=== PATIENT | male | born 1960 | race Caucasian/White ===

== ENCOUNTER 2017-07-12 05:13 | Emergency (ER) | payer SELFPAY ==
[~2017-07-12] VITALS: Ht 190.5 cm; Wt 95.3 kg
[~2017-07-12 05:13] MED LIST: ATIVAN1 MG ORAL
[2017-07-12 05:24] VITALS: BP 174/113
[2017-07-12] MEDS ORDERED: Morphine Sulfate 4mg/ml Inj IVP ONE (05:30)
[2017-07-12] MEDS ORDERED: LORazepam Inj 2mg/ml 1ml IV ONE (05:30)
[2017-07-12 05:41] LABS: BASOPHILS % (AUTO) 1.3 % (0.0-2.0); HEMATOCRIT 43.9 % (42.0-52.0); HEMOGLOBIN 15.9 G/DL (14.2-18.0); LYMPHOCYTES % (AUTO) 24.7 % (20.0-45.0); MEAN CORPUSCULAR VOLUME 98 FL (80-99); MONOCYTES % (AUTO) 8.8 % (1.0-10.0); NEUTROPHILS % (AUTO) 63.2 % (45.0-75.0); PLATELET COUNT 219 K/UL (150-450); RED BLOOD COUNT 4.49 M/UL (4.70-6.10); RED CELL DISTRIBUTION WIDTH 10.8 % (11.6-14.8)
--- NOTE | 2017-07-12 05:43 | Emergency Room Report ---
History of Present Illness General Chief Complaint: Vomiting Source: Patient (WILLIE NOBLE D.O.) Present Illness HPI Patient presents with complaints of diffuse abdominal pain vomiting and diarrhea Patient reports that he feels dehydrated denies any chest pain or shortness of breath He has subjective fevers well Denies any dysuria frequency Patient denies any blood in the vomit or diarrhea He has had previous hernia surgery however no other intra-abdominal surgery Denies any flank pain (WILLIE NOBLE D.O.) Allergies: Coded Allergies: No Known Allergies (Unverified , 07/12/17) Patient History Past Medical History: see triage record Pertinent Family History: none Reviewed Nursing Documentation: PMH: Agreed, PSxH: Agreed (WILLIE NOBLE D.O.) Nursing Documentation-PMH Hx Gastrointestinal Problems: Yes - ULCER History Of Psychiatric Problem: Yes - ANXIETY (WILLIE NOBLE D.O.) Review of Systems All Other Systems: negative except mentioned in HPI (WILLIE NOBLE D.O.) Physical Exam Vital Signs Date Time Temp Pulse Resp B/P (MAP) Pulse Ox O2 Delivery O2 Flow Rate FiO2 07/12/17 05:09 99.1 103 16 174/102 98 Room Air Sp02 EP Interpretation: reviewed, normal General Appearance: well appearing, no apparent distress Head: normocephalic, atraumatic Eyes: bilateral eye PERRL, bilateral eye EOMI ENT: hearing grossly normal, normal pharynx, TMs + canals normal, uvula midline Neck: full range of motion, supple, no meningismus, no bony tend Respiratory: lungs clear, normal breath sounds, no rhonchi, no respiratory distress, no retraction, no accessory muscle use Cardiovascular #1: normal peripheral pulses, regular rate, rhythm, no edema, no gallop, no JVD, no murmur Gastrointestinal: normal bowel sounds, non tender, soft, no mass, no organomegaly, non-distended, no guarding, no hernia, no pulsatile mass, no rebound Genitourinary: no CVA tenderness Musculoskeletal: normal inspection Neurologic: oriented x3, responsive, manager meeting III-XII nml as tested, motor strength/ tone normal, sensory intact Psychiatric: mood/affect normal Skin: normal color, no rash, warm/dry, palpation normal Lymphatic: normal inspection, no adenopathy (WILLIE NOBLE D.O.) Medical Decision Making Diagnostic Impression: Primary Impression: Gastroenteritis ER Course With the history exam and presentation, multiple differentials considered, including but not limited to appendicitis, gastritis, cholecystitis, diverticulitis Patient had blood work initiated IV hydration and pain medication And will require reevaluation (WILLIE NOBLE D.O.) ER Course Patient was endorsed to me by Dr. Noble. I laboratory testing was unremarkable except for mild elevation of his creatinine. The patient was advised to have labs rechecked with his primary care physician. The patient was noted to have improvement in his stomach discomfort. He denied any episodes of hematemesis or bloody stools at home. The patient has continued benign exam. The patient given prescription for Zofran as well as for Ativan for likely mild benzodiazepine withdrawal. The patient is advised to follow up with primary care doctor in 1-2 days. Patient is advised to return if any worsening condition or if any changes in status that are concerning including worsening abdominal pain, persistent vomiting, bloody stools or any other concerns. This report is dictated with [employer] card maker software which may occasionally lead to discrepancies related to use of this software. Labs Test 07/12/17 05:29 White Blood Count 5.0 K/UL (4.8-10.8) Red Blood Count 4.49 M/UL (4.70-6.10) Hemoglobin 15.9 G/DL (14.2-18.0) Hematocrit 43.9 % (42.0-52.0) Mean Corpuscular Volume 98 FL (80-99) Mean Corpuscular Hemoglobin 35.4 PG (27.0-31.0) Mean Corpuscular Hemoglobin Concent 36.3 G/DL (32.0-36.0) Red Cell Distribution Width 10.8 % (11.6-14.8) Platelet Count 219 K/UL (150-450) Mean Platelet Volume 6.4 FL (6.5-10.1) Neutrophils (%) (Auto) 63.2 % (45.0-75.0) Lymphocytes (%) (Auto) 24.7 % (20.0-45.0) Monocytes (%) (Auto) 8.8 % (1.0-10.0) Eosinophils (%) (Auto) 2.0 % (0.0-3.0) Basophils (%) (Auto) 1.3 % (0.0-2.0) Sodium Level 132 MMOL/L (136-145) Potassium Level 4.4 MMOL/L (3.5-5.1) Chloride Level 97 MMOL/L (98-107) Carbon Dioxide Level 24 MMOL/L (21-32) Anion Gap 12 mmol/L (5-15) Blood Urea Nitrogen 12 mg/dL (7-18) Creatinine 1.4 MG/DL (0.55-1.30) Estimat Glomerular Filtration Rate 52.4 mL/min (>60) Glucose Level 128 MG/DL (74-106) Calcium Level 9.1 MG/DL (8.5-10.1) Total Bilirubin 0.6 MG/DL (0.2-1.0) Aspartate Amino Transf (AST/SGOT) 49 U/L (15-37) Alanine Aminotransferase (ALT/SGPT) 32 U/L (12-78) Alkaline Phosphatase 53 U/L (46-116) Total Protein 7.4 G/DL (6.4-8.2) Albumin 4.2 G/DL (3.4-5.0) Globulin 3.2 g/dL Albumin/Globulin Ratio 1.3 (1.0-2.7) Lipase 292 U/L (73-393) (Leonardo Lao) Last Vital Signs Date Time Temp Pulse Resp B/P (MAP) Pulse Ox O2 Delivery O2 Flow Rate FiO2 07/12/17 05:24 99.1 87 17 174/113 99 Room Air (WILLIE NOBLE D.O.) Status: improved (Leonardo Lao) Disposition: HOME, SELF-CARE Condition: Stable Scripts Lorazepam* (ATIVAN*) 1 Mg Tablet 1 MG ORAL BEDTIME, #10 TAB Prov: Leonardo Lao 07/12/17 Ondansetron Odt* (ZOFRAN ODT*) 4 Mg Tab.rapdis 4 MG ORAL Q6H Y for Nausea & Vomiting, #15 TAB 0 Refills Prov: Leonardo Lao 07/12/17 WILLIE NOBLE D.O. Jul 12, 2017 05:43 Leonardo Lao Jul 12, 2017 08:27
[2017-07-12 06:18] LABS: ANION GAP 12 mmol/L (5-15); BLOOD UREA NITROGEN 12 mg/dL (7-18); CALCIUM 9.1 MG/DL (8.5-10.1); CARBON DIOXIDE 24 MMOL/L (21-32); CHLORIDE 97 MMOL/L (98-107); CREATININE 1.4 MG/DL (0.55-1.30); POTASSIUM 4.4 MMOL/L (3.5-5.1); SODIUM 132 MMOL/L (136-145)
[2017-07-12 06:20] LABS: ALANINE AMINOTRANSFERASE 32 U/L (12-78); ALBUMIN 4.2 G/DL (3.4-5.0); ALBUMIN/GLOBULIN RATIO 1.3 (1.0-2.7); ALKALINE PHOSPHATASE 53 U/L (46-116); ASPARTATE AMINO TRANSFERASE 49 U/L (15-37); BILIRUBIN,TOTAL 0.6 MG/DL (0.2-1.0)
[2017-07-12 07:31] VITALS: BP 157/105
[2017-07-12] MEDS ORDERED: ZOFRAN ODT4 MG ORAL (08:20)
[2017-07-12] MEDS ORDERED: ATIVAN1 MG ORAL (08:20)
[2017-07-12 08:28] VITALS: BP 156/105
== END 2017-07-12 08:25 | disposition home or self-care (01) ==
LOC: EDBD 05:13 → EMR 06:11
DX: K52.9 Noninfective gastroenteritis and colitis, unspecified (principal); F41.9 Anxiety disorder, unspecified; Z87.19 Personal history of other diseases of the digestive system
CPT/HCPCS: 36415; 80053; 83690; 85025; 96361; 96374; 96375; 99284; J2270